=== PATIENT | female | born 1940 | race Caucasian/White ===

== ENCOUNTER → 2017-06-16 | Outpatient (CLI) | payer OTHER ==
[~2017-06-16] MED LIST: ADALAT CC60 MG PO; ASA81BEC PO; ASPIR 8181 MG PO; ATIVAN0.5 MG PO; ATORVASTATIN CA40 MG PO; AVAPRO300 MG PO; BENICAR40 MG PO; CALICUM 500+D1 EACH PO; CENTRUM SILVER1 EAC4 PO; CLOPIDOGREL75 MG PO; ENDOCET 5-3251 EACH PO; EXCEDRIN CAPLE1 EACH PO; FLAXSEED OIL1000 M2 PO; IBUPROFEN 200200 M1 PO; KRILL OIL500 MG PO; MILK THISTLE500 MG PO; NABUMETONE 750750 M1 PO; NORVASC10 MG PO; PACERONE 200 M200 M1 PO; PAXIL10 MG PO; PLAVIX 75 MG TA75 M1 PO; POTASSIUM20 PO; PRADAXA150 MG PO; PRILOSEC 20 MG20 MG PO; SEVERE ALLERGY1 EACH PO; TYLENOL325 MG PO; VASOTEC10 MG PO; VITAMIN D-32000 UNIT PO
== END ==
LOC: RAD 11:16
DX: R05 Cough (principal)

== ENCOUNTER → 2017-06-23 | Outpatient (CLI) | payer OTHER ==
--- NOTE | ~2017-06-23 | HPC ---
[facility] [place] [address] PAIN MANAGEMENT CONSULTATION Name: BLANCA KLEIN Room #: REG [facility] Conchis.#: [id number] Admission: 06/23/17 Attend Phys: Jabari Daley MD Discharge: Date of : 42 Report #: [id number] THIS REPORT FOR: //name// CC: Aldo Daley DATE OF SERVICE: 06/23/2017 DATE OF REGISTRATION: 06/23/2017 Followup visit for osteoarthritis, right hip. The patient is here in the pain clinic today requesting a hip injection. I provided her with this injection last in February and she had substantial pain relief for nearly 3 months. She understands that she has severe osteoarthritis of that hip. At some point in time, a hip replacement may be required, but for now she would like an injection to provide symptomatic relief. The patient also has lumbar radiculopathy and has responded differently and favorably to a lumbar epidural injection for sciatica. There is no radiating pain in that distribution. PQRS REVIEW: She has a history of osteoarthritis primarily involving the hip on the right, which we will treat today. She watches her weight carefully and her BMI is between 25 and 30. She has been hypertensive and has been on medication regimen adjustment. Today, blood pressure is slightly elevated 148/89, heart rate is 90. Pain intensity is a 6/10. She is not a fall risk. She has been able to ambulate comfortably without any assistance device. She is on no blood thinner. She is not taking opioids and is not on an agreement. Functional assessment shows that she is quite functional. She does not smoke, but she does use alcohol on a daily basis, just continuing to drink beer up to 6 a day. She has had discussions about this with her primary care physician and I have also shared my thoughts. PHYSICAL EXAMINATION: Today, she is a delightful, pleasant, outgoing female. Blood pressure is 148/89, heart rate is 90, respirations 16. BMI between 25 and 30. She moves easily from a sitting to standing position, but she walks with antalgic feature. She has pain in her hip with internal and external rotation. Localized tenderness that radiates down in the anterior thigh. IMPRESSION: 1. Osteoarthritis, right hip. 2. Low back pain with radiculopathy. 3. History of hypertension. 4. History of depression and anxiety in remission. [facility] [address] [place] [address] PAIN MANAGEMENT CONSULTATION Name: BLANCA KLEIN Room #: REG GARY Nery#: [id number] Admission: 06/23/17 Attend Phys: Jabari Daley MD Discharge: Date of : 41 Report #: [id number] 5. Heavy alcohol use on a daily basis. PROCEDURE: Right hip injection under fluoroscopic guidance. DESCRIPTION OF PROCEDURE: She was taken to fluoroscopic suite, placed prone, skin prepped with ChloraPrep. Skin anesthetized over the left hip joint. A 25-gauge needle was gently advanced into the hip capsule and after negative aspiration, I injected 1 mL of Omnipaque, which demonstrated excellent location within the hip capsule, was then followed by 4 mL of 0.5% bupivacaine mixed with 40 mg of triamcinolone. She tolerated the procedure well and was observed for 45 minutes and discharged. Follow up as needed. <ELECTRONICALLY SIGNED> By: Jabari Daley MD 07/13/17 1640 [id number] Jabari Daley MD /nt
[2017-06-23 10:53] VITALS: BP 148/89
== END | disposition home or self-care (01) ==
LOC: PAIN 06:55
DX: M16.51 Unilateral post-traumatic osteoarthritis, right hip (principal); M54.5 Low back pain; I10 Essential (primary) hypertension; F32.9 Major depressive disorder, single episode, unspecified; F41.9 Anxiety disorder, unspecified; M54.16 Radiculopathy, lumbar region; F17.200 Nicotine dependence, unspecified, uncomplicated

== ENCOUNTER 2017-07-21 10:01 | Inpatient (IN) | payer OTHER ==
[~2017-07-21] VITALS: Ht 157.5 cm; Wt 56.7 kg
[2017-07-21] VITALS (11 sets, daily range): BP systolic 123–171; BP diastolic 74–107
--- NOTE | ~2017-07-21 | CATHLAB ---
[facility] [place] [address] INVASIVE PROCEDURE REPORT Name: BLANCA KLEIN Room #: 204-P ADM IN M.R.#: [id number] Admission: 07/21/17 Attend Phys: Lazaro Arreola, Discharge: Date of : 42 Date of Service: 07/21/17 1627 Report #: [id number] THIS REPORT FOR: //name// APPROVED REPORT Patient Details Patient Status: In-Patient Room #: The patient is a 77 year-old female Event Personnel Walt Rao Supervisor [employer], Beata Reyna RTR, THERMAL CUTTER HAND Monitor, Sahra Pablo Tharp, Cori RN RN, Josh Arora RN ladle liner helper Performed Art Access - R femoral artery* Left Heart Cath w/or w/o Coronaries [id number] [facility] Hemostasis with Manual pressure Indication Dyspnea, Chest pain Risk Factors Hypercholesterolemia, Hypertension, Tobacco History () Procedure Narrative The patient was brought urgently to the Cardiac Catheterization Laboratory and was prepped and draped in a sterile manner. The Right Groin^ was infiltrated with 1% Lidocaine subcutaneous anesthesia. A PINNACLE 4FR Sheath #[id number] sheath was inserted into the RFA^. Coronary angiography was performed using coronary diagnostic catheters. The right coronary system was accessed and visualized with a JR 4 catheter. The left coronary system was accessed and visualized with a JL 4 catheter. The left ventricle was accessed and visualized with a Pigtail catheter. Left ventricular/Aortic Valve gradient assessed via catheter pullback. Left ventriculogram was performed in FRANCIS projection. Hemostasis was obtained with manual pressure following sheath removal without any complications. The patient tolerated the procedure well and there were no complications associated with the procedure. There was no hematoma. Fluoro Time: 2.02 minutes Dose: DAP 1853.60 cGycm2 248 mGy Contrast Type and Amount: Omnipaque 135 ml Coronary Angiography [facility] [employer] [place] [address] INVASIVE PROCEDURE REPORT Name: KLEINBLANCA Room #: 204-P [facility] IN ..#: [id number] Admission: 07/21/17 Attend Phys: Laazro Arreola, Discharge: Date of : 42 Date of Service: 07/21/17 1627 Report #: [id number] The patient's coronary anatomy is right dominant. Diagnostic Cath Left Main Patent vessel, with no flow-limiting lesions. LAD There is a moderate to severe stenosis in the proximal/mid segment of the LAD, 60-70%. The LAD is a moderate to large size caliber vessel, traveling down the anterior wall and wrapping around the apex. Diagonal 1 Small-caliber vessel, with no flow-limiting lesions. Diagonal 2 Small-caliber vessel, with no flow-limiting lesions. Circumflex Supplies 3 obtuse marginal arteries. OM1 Patent vessel, with no flow-limiting lesions. OM2 Patent vessel, with no flow-limiting lesions. OM3 There is a moderate to severe stenosis in the proximal segment, 60%. Right Coronary Dominant vessel with mild disease in the proximal mid segments, 30%. R PDA Patent vessel, with no flow-limiting lesions. RPLV Patent vessel, with no flow-limiting lesions. Left Ventriculography The left ventricle is normal in size with contractility. The left ventricular ejection fraction is estimated to be 60%. Hemodynamics The aortic pressure is 174/84 mmHg with a mean of 122 mmHg. The left ventricular pressure is 187/10 mmHg with a mean of mmHg. The left ventricular end diastolic pressure is 28 mmHg. Conclusion 1. There is a moderate to severe stenosis in the LAD, 60-70%. Recommend stress testing. 2. Moderately severe stenosis in a third obtuse marginal artery, recommend medical therapy. 3. Right dominant system. 4. Normal LV systolic function. 5. Recommend aggressive risk factor management, including smoking cessation. <ELECTRONICALLY SIGNED> By: Walt Rao MD 07/21/17 1627 1627 162 Walt Rao MD /INF
--- NOTE | ~2017-07-21 | EKG ---
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 07/22/17 0750 1010 [id number] Gallito Almaraz MD, [facility] /EPI
[~2017-07-21 10:01] MED LIST changes: -ASPIR 8181 MG PO; -AVAPRO300 MG PO; -BENICAR40 MG PO; -CLOPIDOGREL75 MG PO; -ENDOCET 5-3251 EACH PO; -NABUMETONE 750750 M1 PO; -NORVASC10 MG PO; -PACERONE 200 M200 M1 PO; -PLAVIX 75 MG TA75 M1 PO; -PRADAXA150 MG PO
[2017-07-21] MEDS ORDERED: ATORVASTATIN CA40 MG PO (10:28)
[2017-07-21] MEDS ORDERED: NORVASC10 MG PO (10:28)
[2017-07-21 10:41] LABS: ABSOLUTE NEUTROPHILS 8.1 thou/uL (1.4-8.2); BASOPHILS 0.2 % (0.0-2.0); EOSINOPHILS 0.3 % (0.0-3.0); HEMATOCRIT 46.5 % (37.0-47.0); LYMPHOCYTES 14.5 % (24.0-44.0); MCH 33.5 pg (26.0-34.0); MCHC 34.3 g/dL (28.0-37.0); MCV 97.5 fL (80.0-100.0); MONOCYTES 8.7 % (1.0-8.0); PLATELET COUNT 199 thou/uL (150-400); POLYS 76.3 % (36.0-66.0); RBC 4.77 mil/uL (4.20-5.00); RDW 13.4 % (10.5-14.5); WBC 10.5 thou/uL (4.0-11.0)
[2017-07-21 10:48] LABS: ANION GAP 13 mmol/L (7-16); BUN 6 mg/dL (7-18); CALCIUM 9.4 mg/dL (8.5-10.1); CHLORIDE 96 mmol/L (98-107); CO2 25 mmol/L (21-32); CREATININE 0.9 mg/dL (0.6-1.0); GLUCOSE 90 mg/dL (74-106); POTASSIUM 3.6 mmol/L (3.5-5.1); SODIUM 134 mmol/L (136-145)
[2017-07-21 10:58] LABS: TROPONIN-I < 0.04 ng/mL (<0.06)
[2017-07-21 13:17] LABS: MAGNESIUM 2.1 mg/dL (1.8-2.4); PHOSPHORUS 3.5 mg/dL (2.5-4.9)
[2017-07-21 16:05] LABS: PROTIME 9.5 Seconds (9.3-11.4)
[2017-07-22] VITALS: BP 123/82
[2017-07-22 03:53] VITALS: BP 150/75
[2017-07-22 04:00] VITALS: BP 150/75
[2017-07-22 04:08] LABS: HEMATOCRIT 42.9 % (37.0-47.0); HEMOGLOBIN 14.4 gm/dL (12.0-15.0); MCH 33.3 pg (26.0-34.0); MCHC 33.5 g/dL (28.0-37.0); MCV 99.4 fL (80.0-100.0); RBC 4.31 mil/uL (4.20-5.00); RDW 13.5 % (10.5-14.5); WBC 5.7 thou/uL (4.0-11.0)
[2017-07-22 04:18] LABS: CALCIUM 8.7 mg/dL (8.5-10.1); CREATININE 0.7 mg/dL (0.6-1.0); POTASSIUM 3.6 mmol/L (3.5-5.1)
[2017-07-22 07:39] VITALS: BP 147/79
[2017-07-22] MEDS ORDERED: CLOPIDOGREL75 MG PO (08:41)
[2017-07-22] MEDS ORDERED: PACERONE 200 M200 M1 PO (08:41)
[2017-07-22] MEDS ORDERED: BENICAR40 MG PO (08:42)
[2017-07-22] MEDS ORDERED: ASPIR 8181 MG PO (08:42)
[2017-07-22 11:04] VITALS: BP 150/81
[2017-07-22 11:58] VITALS: BP 150/81
[2017-10-24] MEDS ORDERED: NABUMETONE 750750 M1 PO (11:12)
[2017-10-24] MEDS ORDERED: AVAPRO300 MG PO (11:12)
[2017-11-14] MEDS ORDERED: PACERONE 200 M200 M1 PO (10:50)
[2017-11-14] MEDS ORDERED: PLAVIX 75 MG TA75 M1 PO (10:51)
[2017-11-14] MEDS ORDERED: ASPIR 8181 MG PO (10:51)
[2017-11-14] MEDS ORDERED: BENICAR40 MG PO (10:52)
[2018-03-02] MEDS ORDERED: ENDOCET 5-3251 EACH PO (11:47)
[2018-03-02] MEDS ORDERED: PRADAXA150 MG PO (11:50)
== END 2017-07-22 14:29 | disposition home or self-care (01) | DRG 287 ==
LOC: ER 10:01 → 2N 12:09 → EROBS 12:09 → 2N 15:02 → ENTRNSPT 07-22 12:44 → EDTRNSPTSTS 07-22 12:46 → 2N 07-22 14:29
PROVIDERS: Emergency Medicine; Family Medicine; Internal Medicine Cardiovascular Disease; Nurse Practitioner Adult Health
DX: I25.110 Atherosclerotic heart disease of native coronary artery with unstable angina pectoris (principal); F17.210 Nicotine dependence, cigarettes, uncomplicated; F10.20 Alcohol dependence, uncomplicated; I10 Essential (primary) hypertension; E78.00 Pure hypercholesterolemia, unspecified; I48.0 Paroxysmal atrial fibrillation; J44.9 Chronic obstructive pulmonary disease, unspecified; Z98.49 Cataract extraction status, unspecified eye; Z82.49 Family history of ischemic heart disease and other diseases of the circulatory system; Z79.899 Other long term (current) drug therapy; Z88.2 Allergy status to sulfonamides; Z71.41 Alcohol abuse counseling and surveillance of alcoholic; Z71.6 Tobacco abuse counseling
CPT/HCPCS: 10194

== ENCOUNTER → 2017-09-01 | Outpatient (CLI) | payer OTHER ==
[~2017-09-01] MED LIST changes: +ASPIR 8181 MG PO; +BENICAR40 MG PO; +CLOPIDOGREL75 MG PO; +NORVASC10 MG PO; +PACERONE 200 M200 M1 PO
== END ==
LOC: RAD 14:54
DX: M19.042 Primary osteoarthritis, left hand (principal); M19.041 Primary osteoarthritis, right hand; Z88.2 Allergy status to sulfonamides

== ENCOUNTER → 2017-10-24 | Outpatient (CLI) | payer OTHER ==
[~2017-10-24] VITALS: Ht 157.5 cm; Wt 60.6 kg
[~2017-10-24] MED LIST changes: +AVAPRO300 MG PO; +NABUMETONE 750750 M1 PO
--- NOTE | ~2017-10-24 | HPC ---
[facility] [place] [address] PAIN MANAGEMENT CONSULTATION Name: BLANCA KLEIN Room #: REG [facility] M..#: [id number] Admission: 10/24/17 Attend Phys: Jabari Daley MD Discharge: Date of : 41 Report #: [id number] THIS REPORT FOR: //name// CC: Aldo Daley DATE OF SERVICE: 10/24/2017 Followup visit for osteoarthritis of the right hip and lumbar radiculopathy. The patient is here today for an epidural injection. She has responded very well to an injection performed in June with nearly complete pain relief. Pain is now returning. She also has lumbar radicular pain, which has responded as well to epidural treatments in the past. We talked about injections. She would prefer to have her hip treated and then if the pain is persistent with radiation down into the leg and weaknesses she has had before, then I would proceed with an epidural injection in a few weeks. PQRS review shows that this to be a pleasant female with a history of osteoarthritis of the right hip. She is not on blood thinners at this time, but normally takes Plavix. She discontinued in anticipation of injection. She has a history of cardiovascular disease. No history of CVA. She has a history of atrial fibrillation. She also has a history of hypertension. She is on no opioids and has not completed an assessment tool. She is a current everyday smoker and was counseled. PHYSICAL EXAMINATION: Blood pressure 148/89, heart rate 90, BMI is 22. She is able to move independently from sitting to standing, but walks with marked antalgic feature, owing to her hip. She has pain with external and internal rotation. She has pain of a radicular nature down into the calf with straight leg raising on the right. IMPRESSION: 1. Osteoarthritis, right hip, severe. 2. Low back pain with radiculopathy. 3. Hypertension. 4. Intermittent atrial fibrillation. PLAN: Injection, right hip. PROCEDURE: Skin was prepped with ChloraPrep. Skin anesthetized. A 25 gauge needle advanced into the hip capsule below the head of the femur along the neck. After negative aspiration, I injected 0.25 mL of Omnipaque demonstrating [facility] [address] [place] [address] PAIN MANAGEMENT CONSULTATION Name: BLANCA KLEIN Room #: [facility].#: [id number] Admission: 10/24/17 Attend Phys: Jabari Daley MD Discharge: Date of : 41 Report #: [id number] epidurogram. It was then followed by 3 mL of 0.5% lidocaine mixed with 40 mg triamcinolone. She tolerated the procedure well and was observed for 45 minutes and discharged. Follow up as needed. By: 1534 0014 Jabari Daley MD /nt
[2017-10-24 11:13] VITALS: BP 159/75
== END | disposition home or self-care (01) ==
LOC: PAIN 07:16
DX: M16.11 Unilateral primary osteoarthritis, right hip (principal); G89.29 Other chronic pain; M54.16 Radiculopathy, lumbar region; I10 Essential (primary) hypertension; I48.91 Unspecified atrial fibrillation; F17.210 Nicotine dependence, cigarettes, uncomplicated; Z91.040 Latex allergy status; Z88.2 Allergy status to sulfonamides; Z79.01 Long term (current) use of anticoagulants; Z79.82 Long term (current) use of aspirin; Z79.899 Other long term (current) drug therapy

== ENCOUNTER → 2017-11-14 | Outpatient (CLI) | payer OTHER ==
[~2017-11-14] VITALS: Ht 157.5 cm; Wt 53.5 kg
[~2017-11-14] MED LIST changes: +PLAVIX 75 MG TA75 M1 PO
--- NOTE | ~2017-11-14 | HPC ---
[facility] [place] [address] [place] [address] PAIN MANAGEMENT CONSULTATION Name: BLANCA KLEIN Room #: REG Janice Balderrama.#: [id number] Admission: 11/14/17 Attend Phys: Jabari Daley MD Discharge: Date of : 41 Report #: [id number] THIS REPORT FOR: //name// CC: Aldo Daley DATE OF SERVICE: 11/14/2017 Followup for chronic low back pain with radiculopathy. The patient returns to pain clinic today for an epidural injection. I have also injected her hip successfully. She reports the right hip injection performed at previous visit was significantly better, nearly immediately after the injection. She now complains of pain in her low back, radiates down the posterolateral aspect of her left leg to the calf with cramps. She scores it as a pain of 7/10, aching, worse with turning in bed at night. She has had previous epidural injection with good relief. She would like to proceed with injection. She has been on Plavix, has discontinued it for 1 week in anticipation of the injection with the blessing of her asbestos remover, Dr. Perez. I reviewed all medications. ALLERGIES: TO LATEX AND SULFA. She is not a fall risk and has not recently fallen. She has a history of hypertension. She is not on an opioid agreement. She has osteoarthritis, particularly of the left hip. BMI is kept nice and low at 21.6 as she remains active and watches her diet. PHYSICAL EXAMINATION: She is pleasant, outgoing female. Blood pressure is 165/64, heart rate is 51. She is 5 feet 2 inches, 118 pounds, BMI 21.6. Pain across the low back with forward flexion and extension. Straight leg raising is positive radiating pain into the left leg and follows an L4-L5, L5-S1 distribution consistent with an L4-L5 spondylolisthesis noted on MRI. IMPRESSION: L4-L5 spondylolisthesis and lumbar radiculopathy. RECOMMENDATIONS: Epidural steroid injection under fluoroscopic guidance. PROCEDURE: She was taken to fluoroscopic suite, placed prone, skin prepped with ChloraPrep. Skin anesthetized over the L4-L5 interspace. A 20-gauge Tuohy epidural needle advanced in the epidural space with loss of resistance technique. There was no blood or CSF aspirated. 1 mL of Omnipaque injected. Good spread of dye observed in the epidural space followed by 3 mL of 0.5% lidocaine mixed with 80 mg of triamcinolone. She tolerated the procedure well [address] [address] PAIN MANAGEMENT CONSULTATION Name: BLANCA KLEIN [id number] Admission: 11/14/17 Attend Phys: Jabari Daley MD Discharge: Date of : 41 Report #: [id number] and was observed for 45 minutes and discharged. Followup visit planned in the pain clinic on as needed basis. No medications were ordered for her today. By: 1134 [id number] Jabari Daley MD /nt
[2017-11-14 10:38] VITALS: BP 165/64
== END | disposition home or self-care (01) ==
LOC: PAIN 06:43
DX: M54.16 Radiculopathy, lumbar region (principal); G89.29 Other chronic pain; M43.16 Spondylolisthesis, lumbar region; M16.12 Unilateral primary osteoarthritis, left hip; F17.210 Nicotine dependence, cigarettes, uncomplicated; Z98.890 Other specified postprocedural states; Z88.2 Allergy status to sulfonamides; Z91.040 Latex allergy status; Z79.899 Other long term (current) drug therapy

== ENCOUNTER → 2018-03-02 | Outpatient (CLI) | payer OTHER ==
[~2018-03-02] VITALS: Ht 157.5 cm; Wt 62.1 kg
[~2018-03-02] MED LIST changes: +ENDOCET 5-3251 EACH PO; +PRADAXA150 MG PO
--- NOTE | ~2018-03-02 | HPC ---
[facility] [place] [address] PAIN MANAGEMENT CONSULTATION Name: BLANCA KLEIN Room #: REG GARY Balderrama.#: [id number] Admission: 03/02/18 Attend Phys: Jabari Daley MD Discharge: Date of : 41 Report #: [id number] THIS REPORT FOR: //name// CC: Aldo Daley DATE OF SERVICE: 03/03/2018 HISTORY OF PRESENT ILLNESS: Followup visit for osteoarthritis, right hip. The patient returns to pain clinic today in followup. I saw her last one month ago. She received a hip injection without much benefit. I reviewed the x-ray films from that shot and it looked like it was in appropriate position; however, her lack of response suggests that perhaps the medication was extracapsular. I have told her today that we will repeat the injection. I plan to use a larger needle today. I used a 25 at the last visit. A larger needle may perhaps allow us to determine the joint space more accurately. I often use a smaller needle when someone has been on a blood thinner. She has discontinued her Plavix in anticipation of an injection today. She discussed this with her adult school teacher, Dr. Perez. PQRS: Review shows that she is on Plavix, Benicar, amiodarone, Avapro, lorazepam, omeprazole and ____. ALLERGIES: LATEX AND SULFA. SOCIAL HISTORY: She denies use of alcohol, but continues to smoke daily. She was counseled. She is unlikely to discontinue tobacco based upon her discussion today. She has kept herself active and fit. BMI is 25. She has not fallen, nor does she appear to be a fall risk. She is under treatment by a adult school teacher and Dr. Perez for hypertension. She does not take an opioid medication. Osteoarthritis is the obvious diagnosis here of the right hip. We did spend some time today discussing the possibility of hip replacement. She is a very active, independent 78-year-old and if her adult school teacher and primary care physician clear her, I think that she would recover well from a hip replacement if the injections no longer provide sustained relief. On physical exam today, she does have pain with internal and external rotation of the hip and there was a positive Patt discomfort radiating posteriorly into the gluteal muscles. Localized tenderness over the anterior hip joint. IMPRESSION: Severe osteoarthritis, right hip. [address] [address] PAIN MANAGEMENT CONSULTATION Name: BLANCA KLEIN [facility] [id number] Admission: 03/02/18 Attend Phys: Jabari Daley MD Discharge: Date of : 41 Report #: [id number] PROCEDURE: Hip injection under fluoroscopic guidance. She was placed in the supine position. Skin prepped with ChloraPrep. Skin was anesthetized with 1% lidocaine and a 22-gauge spinal needle was advanced just below the head of the femur onto the joint capsule at the neck of the femur. When the stylet was removed, a clear straw-colored fluid was seen to come from the needle indicating an intracapsular location. I aspirated 2.5 mL of clear joint fluid. I then injected a small amount of radiographic dye to show a confirmatory arthrogram, although we were quite certain we were inside of the joint based upon the fluid. I hope that this will be used in the future if necessary for confirmation for further injections if we choose to do so. I then followed it with 3 mL of 0.5% bupivacaine mixed with 40 mg of triamcinolone. She was taken to recovery room. She was pain free at discharge. FOLLOWUP: As needed. By: 1115 [id number] Jabari Daley MD /nt
[2018-03-02 10:43] VITALS: BP 170/74
== END | disposition home or self-care (01) ==
LOC: PAIN 07:09
DX: M16.11 Unilateral primary osteoarthritis, right hip (principal); G89.29 Other chronic pain; I10 Essential (primary) hypertension; I25.10 Atherosclerotic heart disease of native coronary artery without angina pectoris; F17.210 Nicotine dependence, cigarettes, uncomplicated; Z88.2 Allergy status to sulfonamides; Z91.040 Latex allergy status; Z79.899 Other long term (current) drug therapy; Z79.82 Long term (current) use of aspirin

== ENCOUNTER → 2018-03-23 | Outpatient (CLI) | payer OTHER | LOC: BC 01:06 | DX: Z12.31 Encounter for screening mammogram for malignant neoplasm of breast (principal) ==

== ENCOUNTER → 2018-05-04 | Outpatient (CLI) | payer OTHER ==
[~2018-05-04] VITALS: Ht 160 cm; Wt 60.8 kg
--- NOTE | ~2018-05-04 | P ---
[facility] [address] PROCEDURE REPORT Name: BLANCA KLEIN Room #: [facility] [id number] Admission: 05/04/18 Attend Phys: Tereso Caro MD Discharge: Date of : 41 Report #: [id number] THIS REPORT FOR: //name// CC: Tereso Cantrell BRIEF HISTORY: The patient is a 78-year-old woman with a history of an advanced adenoma with a flat polyp in the proximal transverse colon in 2010. It was at least 1 cm. She recently has had rectal bleeding with bright red blood per rectum. She has also had recent problems with constipation. PREOPERATIVE DIAGNOSES: Rectal bleeding, history of colon polyps and constipation. POSTOPERATIVE DIAGNOSES: 1. Moderately severe sigmoid diverticulosis coli. 2. Moderately large internal hemorrhoids. 3. Previous tattooing without evidence of residual neoplastic disease. MEDICATIONS: Deep sedation with propofol per Anesthesia. SPECIMEN: None. ESTIMATED BLOOD LOSS: None. PROCEDURE: Colonoscopy to cecum and terminal ileum. FINDINGS: Prior to propofol sedation, procedure of colonoscopy discussed with the patient as well as potential risks and its complications. She indicates she understands and desires to proceed. DESCRIPTION OF PROCEDURE: With the patient in left lateral decubitus position, digital examination was completed, which revealed no abnormalities. Subsequently, the Olympus video colonoscope was introduced in the rectum, advanced under direct vision to the cecum. It is done with minimal difficulty. The cecum was identified by the ileocecal valve and the appendiceal orifice. I was able to advance the scope into the distal segment of terminal ileum, which was inspected and noted to be unremarkable. At that point, the scope was slowly withdrawn and careful circumferential views were obtained. Upon slow withdrawal of the scope, the prep was noted to be good. The mucosa was within normal limits, normal vascular pattern, normal light reflex. As we withdrew the scope, no neoplastic lesions were seen during this examination. The mucosa was normal throughout. In the proximal transverse colon, tattoo vazquez were seen at the previous polypectomy site. Careful inspection did not reveal evidence of any residual neoplastic tissue. The scope was further withdrawn and again no neoplastic lesions were seen. As we withdrew the scope through the sigmoid [address] [address] PROCEDURE REPORT Name: BLANCA KLEIN Room #: REG [facility].#: [id number] Admission: 05/04/18 Attend Phys: Tereso Caro MD Discharge: Date of : 41 Report #: [id number] colon, there was noted to be moderately severe diverticular disease without endoscopic evidence of diverticulitis. There is no evidence of bleeding. Scope was withdrawn in the rectum and no abnormalities were seen. Upon retroflexion, moderate internal hemorrhoids were seen. Scope was withdrawn and the patient tolerated procedure well. CONDITION OF THE PATIENT UPON DISCHARGE: Following the procedure, she is drowsy, arousable and conversant. She will be discharged home when fully ambulatory INSTRUCTIONS TO THE PATIENT AND FAMILY AT THE TIME OF DISCHARGE: No neoplastic lesions seen today. Since she had an advanced adenoma, consider followup colon exam in 5 years would be based on her overall health status at that point in time. Suggest high-fiber diet. Also, she may use MiraLax daily as needed for constipation. If symptoms persist, she is to return to the office for followup. Last colonoscopy was in 2010 and withdrawal time from the cecum was 13 minutes 16 seconds. By: 0940 1038 Tereso Caro MD /nt
== END | disposition home or self-care (01) ==
LOC: GI 06:12
DX: K57.30 Diverticulosis of large intestine without perforation or abscess without bleeding (principal); K64.8 Other hemorrhoids; K21.9 Gastro-esophageal reflux disease without esophagitis; I10 Essential (primary) hypertension; I25.10 Atherosclerotic heart disease of native coronary artery without angina pectoris; I48.91 Unspecified atrial fibrillation; E78.5 Hyperlipidemia, unspecified; F32.9 Major depressive disorder, single episode, unspecified; F41.9 Anxiety disorder, unspecified; F17.210 Nicotine dependence, cigarettes, uncomplicated; Z86.010 Personal history of colon polyps; Z98.890 Other specified postprocedural states; Z79.899 Other long term (current) drug therapy; Z98.41 Cataract extraction status, right eye; Z98.42 Cataract extraction status, left eye; Z88.2 Allergy status to sulfonamides; Z79.82 Long term (current) use of aspirin

== ENCOUNTER → 2018-07-06 | Outpatient (CLI) | payer OTHER ==
[~2018-07-06] VITALS: Ht 157.5 cm; Wt 59.6 kg
[~2018-07-06] MED LIST changes: +EDARBYCLOR 40-1 EACH PO; +PAXIL40 MG PO
[2018-07-06 09:53] VITALS: BP 162/93
--- NOTE | 2018-07-06 10:08 | NUR ---
Pain Clinic Assessment: 1. History of Osteoarthritis: YES History of Rheumatoid Arthritis: Not Applicable 2. Height: 5 ft. 2 in. 157.5 cm. Weight: 131.4 lb. oz. 59.603 kg. Patient's BMI: 24.0 3. Vital Signs: BP: 162/93 Pulse: 63 Resp: 16 Temp: 02 Sat: 97 ECG Mon: 4. Pain Intensity: 7 5. Fall Risk: Dizziness: N Needs help standing or walking: N Fallen in the last 3 months: N Fall risk comments: 6. Patient on Blood Thinner: Dabigatran Etex (Pradaxa) 7. History of Hypertension: Y 8. Opioid Therapy greater than 6 weeks: N Opiate Contract Signed: 06/01/18 9. Risk Assessment Tool Provided: LOW 10. Functional Assessment Tool: 11. Recreational Drug Use: Never Drug Type: Tobacco Use: Current Every Day Smoker Tobacco Type: Cigarettes Amount or Packs/day: 1 How Many Years: 50 Alcohol Use: No Frequency: Quant:
--- NOTE | 2018-07-07 12:34 | HPC ---
[facility] [address] [place] [address] PAIN MANAGEMENT CONSULTATION Name: BLANCA KLEIN Room #: REG [facility] M.R.#: [id number] Admission: 07/06/18 ������������������ Attend Phys: Diane Faye Discharge: ������������������ Date of : 42 Report #: [id number] THIS REPORT FOR: //name// CC: Diane Guevarae [facility] DATE OF SERVICE: 07/06/2018 CHIEF COMPLAINT: Osteoarthritis of her right hip. HISTORY OF PRESENT ILLNESS: The patient returns to the Pain Clinic today for a followup visit for her medication refill. She tells me that she is having her right hip replaced by Dr. Wiseman on 07/19/2017. She is very hopeful that her pain will be decreased after her surgery. Her pain score today is 7/10, only located in the right hip, but she states occasionally she has been having some right knee and leg pain. She thinks this is because she has altered her walking due to her hip pain. She tells me she has a constant, aching, pulling pain that is worse in the morning, better with her medication and lying down. Denies any constipation or daytime sleepiness. Would like the refill of her medications prior to her surgery. ALLERGIES: SULFA. CURRENT LIST OF MEDICATIONS: Edarbyclor 40/12.5 q. day, oxycodone 5/325 p.r.n., Paxil 40 mg daily, Pradaxa 150 mg b.i.d., Benicar 40 mg daily, 81 mg aspirin, lorazepam 0.5 mg b.i.d., omeprazole 20 mg daily, Lipitor 40 mg daily. PQRS: 1. She has a history of osteoarthritis involving her right hip. Denies rheumatoid arthritis. 2. Height is 5 feet 2 inches, weight is 131, BMI is 24. 3. 162/93, pulse is 63, respirations 16, oxygen sat 97%. 4. Pain score 7/10. 5. Fall risk. Denies dizziness. Does not need help walking or standing. Has not fallen in the last 3 months. 6. The patient is on Pradaxa. 7. History of hypertension, on medications. Opioid therapy is greater than 6 weeks. Therefore, an opioid signed contract is on the chart. 8. Her risk assessment tool is low. Her functional assessment is 36/70. 9. Does not use any recreational drugs. She is a current smoker and does not drink alcohol. We did check the prescription monitoring system. The patient is filling appropriately from her medications from our doctor. The patient tells me she safeguards her medications. PHYSICAL EXAMINATION: GENERAL: A very pleasant, well-developed, well-nourished 78-year-old female [address] [address] PAIN MANAGEMENT CONSULTATION Name: LATOYABLANCA YURIDIA Room #: REG [facility] Nery#: [id number] Admission: 07/06/18 ������������������ Attend Phys: Diane Faye Discharge: ������������������ Date of : 42 Report #: [id number] that appears her stated age. She is alert and orientated. Her affect is appropriate. HEENT: Normocephalic, atraumatic. Extraocular eye muscles are intact. Mucous membranes are moist. MUSCULOSKELETAL: Pain in the right hip with internal and external rotation. She also has some local tenderness on the anterior hip joint, also complains of some slight pain that is radiating down her right leg into her right knee. The patient walks with an antalgic gait. IMPRESSION: 1. Severe osteoarthritis of her right hip. 2. Spondylosis. 3. Lumbar radiculopathy. We reviewed the fact that opiate medications are being used to provide analgesia adequate to support activities of daily living, not attempting to achieve a specific pain score on the 0-10 Visual Analog Scale. The current opiate medications are providing sufficient analgesia to allow the patient to participate in activities of daily living. The patient is not exhibiting any aberrant behavior suggestive of drug diversion. The patient is not having any adverse reactions to medications. The patient is not suffering from daytime somnolence or mental acuity changes. The patient is managing opiate-induced constipation with appropriate [id number] agents and dietary considerations. The patient was counseled on concern for caution with operating a motor vehicle while using opiate medications. A physical exam was performed and the patient's functional status was evaluated. All patients with back pain were advised against the bed rest greater than 4 days and were advised to return to normal activities. Pain score assessment was noted and the treatment plan was reviewed with the patient. All current medications, both prescribed and OTC were reviewed and reconciled on the electronic medical record. Tobacco screening was accomplished and smoking cessation was advised when indicated. BMI was noted and diet/exercise modification was recommended for all patients following outside normal parameters. I reviewed with the patient today their responsibilities to safeguard prescription medications, reviewed their responsibility to utilize medications only as prescribed by the physician. They are to seek and receive pain medications only from 1 physician group ([facility]). They are to use 1 pharmacy and keep the clinic informed if they change pharmacies. Their responsibilities include making followup visits in a timely fashion and to avoid abrupt discontinuation of medication usage. Their responsibilities further include bringing their medications (bottles from the pharmacy with residual pills) to the visit for possible confirmation of pill counts and the patient understands it is their responsibility to submit to random drug screens to [address] [place] [address] PAIN MANAGEMENT CONSULTATION Name: BLANCA KLEIN Room #: REG [facility]..#: [id number] Admission: 07/06/18 ������������������ Attend Phys: Diane Faye Discharge: ������������������ Date of : 42 Report #: [id number] ensure both that the medications prescribed are present, and that no other controlled substances are present. All prescriptions provided today were generated electronically. PLAN: 1. We discussed treatment options with the patient today. She would like a refill of her oxycodone. She takes 5/325, #90. This lasts her a month to a month and a half depending on her pain. She has decreased her Tylenol use, taking no more than 3000 mg per day since her last visit. 2. We spent some time discussing her upcoming surgery and to try to decrease her pain medications to no pills or 1 pill a day, even splitting them in half if need be prior to her surgery. We discussed the benefits of doing this to help with postoperative pain. The patient is agreeable that she will try this. She states that she will be in the hospital for about 4 days and then will return home. She will call us as needed for refills after her hip surgery. 3. The patient is seen by Dr. Daley and myself and in collaboration with Dr. Jabari Daley today. ��������������������������������������������� <ELECTRONICALLY SIGNED> ���������������������������������������� By: Diane Faye ��������������������������������������������� 07/07/18 1234 [id number] Diane raymundo
== END ==
LOC: PAIN 06-29 14:01
DX: M16.11 Unilateral primary osteoarthritis, right hip (principal); M47.16 Other spondylosis with myelopathy, lumbar region; I10 Essential (primary) hypertension; F17.210 Nicotine dependence, cigarettes, uncomplicated; Z88.2 Allergy status to sulfonamides; Z79.899 Other long term (current) drug therapy; Z79.891 Long term (current) use of opiate analgesic

== ENCOUNTER → 2018-07-06 | Outpatient (CLI) | payer OTHER | LOC: RAD 12:19 | DX: J44.9 Chronic obstructive pulmonary disease, unspecified (principal) ==

== ENCOUNTER 2019-02-19 08:33 | Inpatient (IN) | payer OTHER ==
[2019-02-19] VITALS (7 sets, daily range): BP systolic 102–137; BP diastolic 51–73
[~2019-02-19] VITALS: Ht 157.5 cm; Wt 65.1 kg
[2019-02-19 09:47] LABS: BASOPHILS 0.1 % (0.0-2.0); EOSINOPHILS 0.2 % (0.0-3.0); HEMOGLOBIN 12.8 gm/dL (12.0-15.0); LYMPHOCYTES 16.8 % (24.0-44.0); MCH 29.2 pg (26.0-34.0); MCHC 33.7 g/dL (28.0-37.0); MCV 86.5 fL (80.0-100.0); MONOCYTES 6.6 % (1.0-8.0); PLATELET COUNT 237 thou/uL (150-400); POLYS 76.3 % (36.0-66.0); RBC 4.39 mil/uL (4.20-5.00); RDW 15.5 % (10.5-14.5); WBC 6.6 thou/uL (4.0-11.0)
[2019-02-19 09:56] LABS: CREATININE 1.1 mg/dL (0.6-1.0); POTASSIUM 3.8 mmol/L (3.5-5.1)
[2019-02-19 11:17] LABS: URINE BILIRUBIN NEGATIVE (Negative); URINE BLOOD NEGATIVE (Negative); URINE CLARITY CLEAR; URINE COLOR YELLOW; URINE GLUCOSE-RANDOM* NEGATIVE (Negative); URINE KETONES NEGATIVE (Negative); URINE LEUKOCYTES-REFLEX 1+ (Negative); URINE NITRITE-REFLEX NEGATIVE (Negative); URINE PROTEIN (DIPSTICK) NEGATIVE (Negative); URINE SPECIFIC GRAVITY <= 1.005 (1.005-1.035); URINE UROBILINOGEN 0.2 E.U./dl (0.2-1.0)
[2019-02-19 11:24] LABS: AMP/METHAMP Negative (Negative); BARBITURATES Negative (Negative); BENZODIAZEPINES Negative (Negative); COCAINE Negative (Negative); METHADONE Negative (Negative); OPIATES Negative (Negative); PCP Negative (Negative)
[2019-02-19 11:27] LABS: BACTERIA-REFLEX 1-9 Few /HPF (None Seen); CASTS None Seen /LPF (None Seen); CRYSTALS None Seen /LPF (None Seen); SQUAMOUS >10 Many /LPF (0-3); TRANSITIONAL EPITHEL CELL 0-3 Few /LPF (None Seen); URINE RBC None Seen /HPF (0-2); URINE WBC-REFLEX 0-5 Rare /HPF (0-5)
[2019-02-19 12:17] LABS: PHOSPHORUS 3.9 mg/dL (2.5-4.9)
[2019-02-19 17:05] LABS: ALBUMIN 3.8 g/dL (3.4-5.0); CALCIUM 9.4 mg/dL (8.5-10.1); CREATININE 0.8 mg/dL (0.6-1.0); PHOSPHORUS 3.8 mg/dL (2.5-4.9); POTASSIUM 3.7 mmol/L (3.5-5.1); URIC ACID* 3.6 mg/dL (2.6-7.2)
[2019-02-19 17:29] LABS: FOLIC ACID 19.2 ng/mL (8.6-58.9)
--- NOTE | 2019-02-19 18:41 | NUR ---
VSS REMAIN SNSR. LUNGS CLEAR AND DIMINISHED, O2 SAT 94% RA. PT ALERT AND ORIENTED X 4, FORGETFUL. CIWA 0 WHEN CHECKED Q1H. UP IN TO BRP WITH ASSIST OF 1, PT IS UNSTEADY ON FEET. WILL CONTINUE TO MONITER AND CARE FOR PT PER PLAN OF CARE
[2019-02-20] VITALS (7 sets, daily range): BP systolic 90–151; BP diastolic 41–79
[2019-02-20 05:19] LABS: ALBUMIN 3.6 g/dL (3.4-5.0); CALCIUM 8.5 mg/dL (8.5-10.1); CREATININE 0.8 mg/dL (0.6-1.0); PHOSPHORUS 4.3 mg/dL (2.5-4.9); POTASSIUM 3.7 mmol/L (3.5-5.1)
--- NOTE | 2019-02-20 06:12 | NUR ---
PT RESTING QUIETLY IN ROOM, CALLS OUT APPROPRIATLY FOR ASSIST UP TO BR, URINE SENT TO LAB, NO C/O PAIN, VSS WILL CON'T TO MONITOR PER PPOC.
--- NOTE | 2019-02-20 14:20 | NUR ---
met with patient and spouse at bedside. Patient admits with hyponatremia and ETOH abuse. Patient agreeable to discuss with spouse at bedside. patient daily drinker and smokes as well. She reports she has been sober in past approx 2 years ago and able to obtain sobriety with no intervention assistance. She does not attend AA and denies tx options or resources. Also discussed smoking cessations, she plans to work on sobriety first. She resides at home with spouse. No hx of DME and cont to drive. She has her 16 year old grandson at home. He drives, works and working on his GED. Plan home at dc. 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
--- NOTE | 2019-02-20 14:29 | NUR ---
VSS NSR LUNGS CLEAR AND DIMINISHED, O2 SAT RA IS 94%. PT UP TO BRP WITH ASSIST OF ONE, REMAINS UNSTEADY ON FEET. APPETITE GOOD TODAY, EATING 75% OF MEALS CIWA Q4H IS O TODAY. WILL CONTINUE TO MONITER AND CARE FOR PT PER PLAN OF CARE
[2019-02-21 03:57] LABS: ALBUMIN 3.3 g/dL (3.4-5.0); CALCIUM 8.7 mg/dL (8.5-10.1); CREATININE 0.7 mg/dL (0.6-1.0); PHOSPHORUS 3.8 mg/dL (2.5-4.9); POTASSIUM 3.1 mmol/L (3.5-5.1)
[2019-02-21 05:27] VITALS: BP 1240/69
--- NOTE | 2019-02-21 05:36 | NUR ---
ASSUMED PT CARE 1900 WITH NO SIGN OF DISTRESS NOTED IN PT. PT IS ALERT AND ORIENTED. DAUGTHER AT BEDSIDE. FALL PRECAUTION IN [place]. MONITOR FOR ETOH WITHDRAWAL. CIWA PROTOCOL IN PLACE. PT IS STABLE THROUGHOUT THE NIGHT, DENIES ANY FUTHER NEEDS AT THIS TIME.
[2019-02-21 08:30] VITALS: BP 117/73
[2019-02-21 11:08] VITALS: BP 117/73
--- NOTE | 2019-02-21 11:35 | NUR ---
PT CARE ASSUMED APPROX 0700. PT ALERT AND ORIENTED X4. DENIES PAIN AND SOA. VSS. POC UPDATED AND PT EVALUATED AND APPROVED FOR DISCHARGE. DISCHARGE PAPERWORK REVIEWED WITH PT AND SPOUSE. CHANGES TO HOME MEDS NOTED IN PAPERWORK. NURSING EDUCATED PT ON INCREASE FOR CVA WITH NEW MED CHANGES. PT AND SPOUSE DENY QUESTIONS OR CONCERNS REGARDING DISCHARGE AND POST HOSPITAL CARE. IV OUT, TELE BOX OFF. HOSPITAL STAFF TO ESCORT PT OUT TIMELY. ALL BELONGINGS IN PT POSSESSION.
--- NOTE | 2019-02-21 12:26 | NUR ---
PATIENT DISCHARGED BEFORE O.T. EVALUATION COULD BE ADDRESED ORDERED.
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
== END 2019-02-21 11:50 | disposition home or self-care (01) | DRG 640 ==
LOC: ER 08:33 → EROBS 11:48 → 2N 11:48 → ENTRNSPT 02-21 11:33 → EDTRNSPTSTS 02-21 11:43 → 2N 02-21 11:50
PROVIDERS: Emergency Medicine; Hospitalist; Internal Medicine Nephrology; ADMIT Internal Medicine
PROC: 3E0234Z Introduction of Serum, Toxoid and Vaccine into Muscle, Percutaneous Approach (ICD-10-PCS; principal; 2019-02-20)
DX: E87.1 Hypo-osmolality and hyponatremia (principal); E43 Unspecified severe protein-calorie malnutrition; F10.29 Alcohol dependence with unspecified alcohol-induced disorder; E78.5 Hyperlipidemia, unspecified; I48.91 Unspecified atrial fibrillation; K21.9 Gastro-esophageal reflux disease without esophagitis; F32.9 Major depressive disorder, single episode, unspecified; F17.210 Nicotine dependence, cigarettes, uncomplicated; R29.6 Repeated falls; I10 Essential (primary) hypertension; I65.29 Occlusion and stenosis of unspecified carotid artery; I25.10 Atherosclerotic heart disease of native coronary artery without angina pectoris; S00.03XA Contusion of scalp, initial encounter; W18.39XA Other fall on same level, initial encounter; E87.6 Hypokalemia; F41.9 Anxiety disorder, unspecified; Z79.899 Other long term (current) drug therapy; Z88.2 Allergy status to sulfonamides; Z79.01 Long term (current) use of anticoagulants; Z84.1 Family history of disorders of kidney and ureter; Z83.79 Family history of other diseases of the digestive system; Z71.6 Tobacco abuse counseling; Y93.89 Activity, other specified; Y92.89 Other specified places as the place of occurrence of the external cause; Y99.8 Other external cause status; Z90.49 Acquired absence of other specified parts of digestive tract; Z82.49 Family history of ischemic heart disease and other diseases of the circulatory system; Z98.42 Cataract extraction status, left eye; Z98.41 Cataract extraction status, right eye; Z71.41 Alcohol abuse counseling and surveillance of alcoholic; Z68.26 Body mass index [BMI] 26.0-26.9, adult; Z23 Encounter for immunization
CPT/HCPCS: 10081

== ENCOUNTER → 2019-10-18 | Outpatient (CLI) | payer OTHER ==
[~2019-10-18] VITALS: Ht 157.5 cm; Wt 67.6 kg
[~2019-10-18] MED LIST changes: +NEURONTIN600 MG PO; +NORVASC5 MG PO; +TYLOPHEN500 MG PO
--- NOTE | ~2019-10-18 | HPC ---
[facility] [place] [address] PAIN MANAGEMENT CONSULTATION Name: BLANCA KLEIN Room #: REG [facility] M..#: [id number] Admission: 10/18/19 Attend Phys: Jabari Daley MD Discharge: Date of : 42 Report #: [id number] THIS REPORT FOR: cc: Aldo Cantrell MD, Rene P. MD Morgan,Jabari Keating MD ~ CC: Aldo Daley DATE OF SERVICE: 10/18/2019 Followup visit for lumbar radiculopathy. The patient presents to the pain clinic today with a pain score of 7, pain in her back radiating into her legs with numbness. She describes an aching nerve pain. It is worse on the right than the left. Pain is however bilateral. In the past, she has responded favorably to epidural injections with up to 3 months of excellent relief up to 85%. This has allowed her to be much more active and ambulating. I have reviewed her record. She has a history of atrial fibrillation, but is on no blood thinners. Her medications for pain include gabapentin, which she does not like because it makes her gain weight. She has cut it down to 600 mg once daily in the morning. PQRS: Positive for osteoarthritis of the hip, neck and back. She had a hip replacement with Dr. Juni Wiseman that went very well last year. BMI is 27, blood pressure 139/79, heart rate is 70, respirations 16, O2 sat 100, pain intensity 7. She is not a fall risk. She is on no blood thinning medications. Dr. Cantrell treats her for hypertension. She took some opioid medication, was on an opioid agreement, but does not currently take medication. Her opioid risk assessment tool score was 0. Functional assessment tool of 38/70 suggesting that she manages her pain fairly effectively. She continues to smoke 1-1/2 packs a day and has done so for 50 years, she was counseled. She is now 79 ____ lady, average life expectancy of a female. She may continue to smoke. She denies use of alcohol. The patient remains very active. PHYSICAL EXAMINATION: GENERAL: She is pleasant, alert and oriented. No signs of depression, anxiety or overmedication. MUSCULOSKELETAL: She moves independently from sitting to standing position, but her gait is antalgic. She has tenderness across her low back. [facility] [address] [address] PAIN MANAGEMENT CONSULTATION Name: BLANCA KLEIN Room #: REG [facility]#: [id number] Admission: 10/18/19 Attend Phys: Jabari Daley MD Discharge: Date of : 42 Report #: [id number] raising is bilateral and radiates in the L5-S1 distribution. IMPRESSION: Lumbar radiculopathy. She has x-ray evidence of spinal stenosis at L4-L5. RECOMMENDATION: Repeat epidural injection L4-L5 under fluoroscopic guidance. PROCEDURE NOTE: She was taken to fluoroscopic suite, placed prone, skin prepped with ChloraPrep. Skin anesthetized over L4-L5 and a 20-gauge Tuohy epidural needle advanced in the epidural space on the first attempt using loss of resistance. There was no blood or CSF aspirated. A 1 mL of Omnipaque injected. Good spread of dye observed in the epidural space followed by 3 mL of 0.5% lidocaine mixed with 80 mg of triamcinolone. She tolerated the procedure well. There were no complications. She was taken to recovery room for observation for 30 minutes and discharged. Followup as needed. By: [id number] Jabari Daley MD /nt
[2019-10-18 11:01] VITALS: BP 139/75
--- NOTE | 2019-10-18 11:21 | NUR ---
Pain Clinic Assessment: 1. History of Osteoarthritis: back hip neck History of Rheumatoid Arthritis: Not Applicable 2. Height: 5 ft. 2 in. 157.5 cm. Weight: 149.0 lb. oz. 67.586 kg. Patient's BMI: 27.2 3. Vital Signs: BP: 139/75 Pulse: 70 Resp: 16 Temp: 02 Sat: 100 ECG Mon: 4. Pain Intensity: 7 5. Fall Risk: Dizziness: N Needs help standing or walking: N Fallen in the last 3 months: N Fall risk comments: 6. Patient on Blood Thinner: None 7. History of Hypertension: Y 8. Opioid Therapy greater than 6 weeks: N Opiate Contract Signed: 06/01/18 9. Risk Assessment Tool Provided: LOW 10. Functional Assessment Tool: 11. Recreational Drug Use: Never Drug Type: Tobacco Use: Current Some Day Smoker Tobacco Type: Cigarettes Amount or Packs/day: 1 1/2 ppd How Many Years: 50 Alcohol Use: No Frequency: Quant:
== END | disposition home or self-care (01) ==
LOC: PAIN 06:57
DX: M54.16 Radiculopathy, lumbar region (principal); M19.90 Unspecified osteoarthritis, unspecified site; G89.29 Other chronic pain; I10 Essential (primary) hypertension; I25.10 Atherosclerotic heart disease of native coronary artery without angina pectoris; I48.91 Unspecified atrial fibrillation; Z79.899 Other long term (current) drug therapy; Z98.890 Other specified postprocedural states; Z88.2 Allergy status to sulfonamides; Z79.01 Long term (current) use of anticoagulants

== ENCOUNTER → 2019-11-01 | Outpatient (CLI) | payer OTHER | LOC: SJCVC 11:23 | PROVIDERS: ATTEND Internal Medicine Cardiovascular Disease | DX: R94.31 Abnormal electrocardiogram [ECG] [EKG] (principal); I25.10 Atherosclerotic heart disease of native coronary artery without angina pectoris; E87.6 Hypokalemia; I48.0 Paroxysmal atrial fibrillation; J43.9 Emphysema, unspecified; I65.23 Occlusion and stenosis of bilateral carotid arteries; I15.9 Secondary hypertension, unspecified; F17.200 Nicotine dependence, unspecified, uncomplicated ==

== ENCOUNTER → 2020-06-12 | Outpatient (CLI) | payer OTHER | LOC: SJCVC 10:41 | PROVIDERS: ATTEND Internal Medicine Cardiovascular Disease | DX: R94.31 Abnormal electrocardiogram [ECG] [EKG] (principal); I25.10 Atherosclerotic heart disease of native coronary artery without angina pectoris; E78.6 Lipoprotein deficiency; I48.0 Paroxysmal atrial fibrillation; J43.9 Emphysema, unspecified; I77.9 Disorder of arteries and arterioles, unspecified; I15.9 Secondary hypertension, unspecified; E78.00 Pure hypercholesterolemia, unspecified; K21.9 Gastro-esophageal reflux disease without esophagitis; F17.210 Nicotine dependence, cigarettes, uncomplicated; F41.9 Anxiety disorder, unspecified; Z79.899 Other long term (current) drug therapy; Z88.2 Allergy status to sulfonamides ==

== ENCOUNTER → 2020-08-11 | Outpatient (CLI) | payer OTHER | LOC: SJCVCIMAG 09:20 | PROVIDERS: ATTEND Internal Medicine Cardiovascular Disease | DX: R06.00 Dyspnea, unspecified (principal); I25.10 Atherosclerotic heart disease of native coronary artery without angina pectoris; I48.0 Paroxysmal atrial fibrillation; E78.6 Lipoprotein deficiency; I65.23 Occlusion and stenosis of bilateral carotid arteries; I15.9 Secondary hypertension, unspecified; I10 Essential (primary) hypertension; K21.9 Gastro-esophageal reflux disease without esophagitis; J44.9 Chronic obstructive pulmonary disease, unspecified; E78.00 Pure hypercholesterolemia, unspecified; F17.210 Nicotine dependence, cigarettes, uncomplicated; Z79.899 Other long term (current) drug therapy; Z88.0 Allergy status to penicillin ==

== ENCOUNTER → 2020-09-22 | Outpatient (CLI) | payer OTHER ==
[~2020-09-22] VITALS: Ht 157.5 cm; Wt 68.0 kg
[~2020-09-22] MED LIST changes: +XARELTO15 MG PO
[2020-09-22 13:46] VITALS: BP 142/76
--- NOTE | 2020-09-22 14:01 | NUR ---
Pain Clinic Assessment: 1. History of Osteoarthritis: back hip neck History of Rheumatoid Arthritis: Not Applicable 2. Height: 5 ft. 2 in. 157.5 cm. Weight: 150.0 lb. oz. 68.040 kg. Patient's BMI: 27.4 3. Vital Signs: BP: 142/76 Pulse: 62 Resp: 16 Temp: 02 Sat: 97 ECG Mon: 4. Pain Intensity: 5 5. Fall Risk: Dizziness: N Needs help standing or walking: N Fallen in the last 3 months: N Fall risk comments: 6. Patient on Blood Thinner: XARELTO 7. History of Hypertension: Y 8. Opioid Therapy greater than 6 weeks: N Opiate Contract Signed: 06/01/18 9. Risk Assessment Tool Provided: LOW 10. Functional Assessment Tool: 11. Recreational Drug Use: Never Drug Type: Tobacco Use: Current Some Day Smoker Tobacco Type: Cigarettes Amount or Packs/day: 1 PACK How Many Years: Alcohol Use: No Frequency: Quant:
== END | disposition home or self-care (01) ==
LOC: PAIN 11:10
PROVIDERS: ATTEND Anesthesiology Pain Medicine
DX: M54.16 Radiculopathy, lumbar region (principal); M48.061 Spinal stenosis, lumbar region without neurogenic claudication; G89.29 Other chronic pain; I25.10 Atherosclerotic heart disease of native coronary artery without angina pectoris; F17.210 Nicotine dependence, cigarettes, uncomplicated; Z98.890 Other specified postprocedural states; Z79.899 Other long term (current) drug therapy; Z79.01 Long term (current) use of anticoagulants; Z88.2 Allergy status to sulfonamides

== ENCOUNTER → 2021-01-13 | Outpatient (CLI) | payer OTHER | LOC: RAD 15:14 | PROVIDERS: ATTEND Internal Medicine Pulmonary Disease | DX: R05 Cough (principal); I70.0 Atherosclerosis of aorta ==

== ENCOUNTER → 2021-02-23 | Outpatient (CLI) | payer OTHER ==
[~2021-02-23] VITALS: Ht 152.4 cm; Wt 67.6 kg
[~2021-02-23] MED LIST changes: +SPIRIVA RESPIMAT4 G1 INH
[2021-02-23 13:03] VITALS: BP 157/83
--- NOTE | 2021-02-23 13:10 | NUR ---
Pain Clinic Assessment: 1. History of Osteoarthritis: back hip neck History of Rheumatoid Arthritis: Not Applicable 2. Height: 5 ft. 0 in. 152.4 cm. Weight: 149.0 lb. oz. 67.586 kg. Patient's BMI: 29.1 3. Vital Signs: BP: 157/83 Pulse: 50 Resp: 16 Temp: 02 Sat: 96 ECG Mon: 4. Pain Intensity: 7 5. Fall Risk: Dizziness: N Needs help standing or walking: N Fallen in the last 3 months: N Fall risk comments: 6. Patient on Blood Thinner: XARELTO 7. History of Hypertension: Y 8. Opioid Therapy greater than 6 weeks: N Opiate Contract Signed: 06/01/18 9. Risk Assessment Tool Provided: LOW 10. Functional Assessment Tool: 11. Recreational Drug Use: Never Drug Type: Tobacco Use: Current Some Day Smoker Tobacco Type: Cigarettes Amount or Packs/day: 1 PACK How Many Years: Alcohol Use: No Frequency: Quant:
== END | disposition home or self-care (01) ==
LOC: PAIN 09:38
PROVIDERS: ATTEND Anesthesiology Pain Medicine
DX: M54.16 Radiculopathy, lumbar region (principal); M48.062 Spinal stenosis, lumbar region with neurogenic claudication; G89.29 Other chronic pain; I25.10 Atherosclerotic heart disease of native coronary artery without angina pectoris; Z98.890 Other specified postprocedural states; Z79.899 Other long term (current) drug therapy; Z87.891 Personal history of nicotine dependence; Z88.8 Allergy status to other drugs, medicaments and biological substances

== ENCOUNTER → 2021-03-04 | Outpatient (CLI) | payer OTHER | LOC: SJCVC 11:37 | PROVIDERS: ATTEND Internal Medicine Cardiovascular Disease | DX: R94.31 Abnormal electrocardiogram [ECG] [EKG] (principal); I25.10 Atherosclerotic heart disease of native coronary artery without angina pectoris; I10 Essential (primary) hypertension; E78.6 Lipoprotein deficiency; I48.0 Paroxysmal atrial fibrillation; I77.9 Disorder of arteries and arterioles, unspecified; J44.9 Chronic obstructive pulmonary disease, unspecified; E78.00 Pure hypercholesterolemia, unspecified; D68.59 Other primary thrombophilia; F17.210 Nicotine dependence, cigarettes, uncomplicated; Z79.899 Other long term (current) drug therapy; Z88.5 Allergy status to narcotic agent; Z88.8 Allergy status to other drugs, medicaments and biological substances ==